=== PATIENT | male | born 1950 | race Caucasian/White ===

== ENCOUNTER 2019-04-02 22:08 | Inpatient (IN) | payer MEDICARE ==
[~2019-04-02] VITALS: Ht 180.3 cm; Wt 154.2 kg
--- NOTE | 2019-04-02 22:10 | ER Report ---
History and Physical Time Seen By MD: 22:10 HPI/ROS CHIEF COMPLAINT: Shortness of breath, chest pain HISTORY OF PRESENT ILLNESS: Patient is a 69-year-old male who is from [facility]. Patient reports that over the past several days he has developed progressive, worsening shortness breath, chest pains and a history of prior CVA. Patient reports that he is supposed to be on anticoagulation however he had taken himself off of blood thinning agents approximately 2 years ago. Patient describes pain radiating into his right back from his chest, shortness breath. Patient was also noted to be hypoxic at 85% on room air at rest with no prior history of supplemental oxygen requirement. REVIEW OF SYSTEMS: Constitutional: No fever, no chills. Eyes: No discharge. ENT: No sore throat. Cardiovascular: + chest pain, + palpitations. Respiratory: No cough, + shortness of breath. Gastrointestinal: No abdominal pain, no vomiting. Genitourinary: No hematuria. Musculoskeletal: No back pain. Skin: No rashes. Neurological: No headache.+ Generalized weakness Allergies: Uncoded Allergies: codiene (Allergy, Intermediate, 04/02/19) Constitutional Vital Sign - Last 24 Hours 04/02/19 04/02/19 04/02/19 04/02/19 22:13 22:15 22:20 22:20 Temp 98.4 Pulse 142 134 Resp 20 22 B/P (MAP) 162/143 Pulse Ox 85 93 O2 Delivery Room Air Nasal Cannula O2 Flow Rate 2.0 1.5 04/02/19 04/02/19 04/02/19 04/02/19 22:30 22:30 22:30 22:35 Pulse 136 116 146 Resp 22 24 24 Pulse Ox 93 O2 Delivery Nasal Cannula O2 Flow Rate 1.5 04/02/19 04/03/19 04/03/19 04/03/19 23:08 00:30 00:40 01:00 Pulse 118 105 Resp 23 39 29 B/P (MAP) 151/121 (131) 140/125 (130) Pulse Ox 91 04/03/19 04/03/19 04/03/19 01:20 01:40 01:52 Pulse 134 Resp 22 B/P (MAP) 138/112 (121) 135/98 (110) Pulse Ox 93 Physical Exam General Appearance: The patient is alert, has no immediate need for airway protection and no signs of toxicity. Uncomfortable appearing, visibly short of breath Eyes: Pupils equal and round no pallor or injection. ENT, Mouth: Mucous membranes are moist. Respiratory: There are no retractions, lungs are clear to auscultation. Cardiovascular: Rapid, irregularly irregular Gastrointestinal: Abdomen is soft and non tender, no masses, bowel sounds normal. Neurological: No focal neurological findings, cranial nerves intact Skin: Warm and dry, no rashes. Musculoskeletal: Neck is supple non tender. Extremities are nontender, nonswollen and have full range of motion. DIFFERENTIAL DIAGNOSIS: After history and physical exam differential diagnosis was considered for shortness of breath including but not limited to pulmonary infectious process, COPD, asthma, pulmonary embolus and congestive heart failure. Alvin wong RVR Medical Decision Making Data Points Result Diagram: 04/02/19223704/02/192237 Laboratory Hematology Test 04/02/19 22:38 04/03/19 01:27 Red Blood Count 4.66 M/uL (4.00-5.60) Mean Corpuscular Volume 91.3 fL (80.0-96.0) Mean Corpuscular Hemoglobin 30.0 pg (26.0-33.0) Mean Corpuscular Hemoglobin Concent 32.9 g/dL (32.0-36.0) Red Cell Distribution Width 13.2 % (11.5-14.5) Mean Platelet Volume 9.6 fL (7.2-11.1) Neutrophils (%) (Auto) 70.1 % (39.4-72.5) Lymphocytes (%) (Auto) 16.8 % (17.6-49.6) Monocytes (%) (Auto) 10.2 % (4.1-12.4) Eosinophils (%) (Auto) 1.9 % (0.4-6.7) Basophils (%) (Auto) 1.0 % (0.3-1.4) Nucleated RBC Relative Count (auto) 0.0 /100WBC Neutrophils # (Auto) 9.0 K/uL (2.0-7.4) Lymphocytes # (Auto) 2.2 K/uL (1.3-3.6) Monocytes # (Auto) 1.3 K/uL (0.3-1.0) Eosinophils # (Auto) 0.2 K/uL (0.0-0.5) Basophils # (Auto) 0.1 K/uL (0.0-0.1) Nucleated RBC Absolute Count (auto) 0.01 K/uL Prothrombin Time 13.3 seconds (12.0-14.4) Prothromb Time International Ratio 1.01 Activated Partial Thromboplast Time 30 seconds (23-35) D-Dimer Quantitative (PE/DVT) 1.28 ug/ml (0-0.50) Blood Gas Patient Temperature 98.4 DEGREES Venous Blood pH 7.39 (7.31-7.41) Venous Blood Partial Pressure CO2 34 mmHg Venous Blood Partial Pressure O2 78 mmHg Venous Blood HCO3 21 mmol/L Venous Blood Oxygen Saturation 96 % Venous Blood Base Excess -4 mmol/L Oxygen Liters/Minute 2 Sodium Level 138 mmol/L (137-145) Potassium Level 3.9 mmol/L (3.5-5.0) Chloride Level 105 mmol/L (98-107) Carbon Dioxide Level 23 mmol/L (22-30) Blood Urea Nitrogen 22 mg/dl (9-21) Creatinine 0.80 mg/dl (0.66-1.25) Glomerular Filtration Rate Calc > 60.0 Random Glucose 118 mg/dl (75-110) Lactate 1.2 mmol/L (0.7-2.1) Calcium Level 9.0 mg/dl (8.4-10.2) Total Bilirubin 0.6 mg/dl (0.2-1.3) Aspartate Amino Transf (AST/SGOT) 36 U/L (0-35) Alanine Aminotransferase (ALT/SGPT) 69 U/L (0-56) Alkaline Phosphatase 76 U/L (0-126) B-Type Natriuretic Peptide 231 pg/ml (0-100) Total Protein 6.3 g/dl (6.3-8.2) Albumin 3.7 g/dl (3.5-5.0) Lipase 52 U/L (23-300) Troponin I 0.053 ng/ml Chemistry Test 04/02/19 22:38 04/03/19 01:27 White Blood Count 12.8 k/uL (4.5-11.0) Red Blood Count 4.66 M/uL (4.00-5.60) Hemoglobin 14.0 g/dL (14.0-18.0) Hematocrit 42.5 % (42.0-52.0) Mean Corpuscular Volume 91.3 fL (80.0-96.0) Mean Corpuscular Hemoglobin 30.0 pg (26.0-33.0) Mean Corpuscular Hemoglobin Concent 32.9 g/dL (32.0-36.0) Red Cell Distribution Width 13.2 % (11.5-14.5) Platelet Count 210 K/uL (150-450) Mean Platelet Volume 9.6 fL (7.2-11.1) Neutrophils (%) (Auto) 70.1 % (39.4-72.5) Lymphocytes (%) (Auto) 16.8 % (17.6-49.6) Monocytes (%) (Auto) 10.2 % (4.1-12.4) Eosinophils (%) (Auto) 1.9 % (0.4-6.7) Basophils (%) (Auto) 1.0 % (0.3-1.4) Nucleated RBC Relative Count (auto) 0.0 /100WBC Neutrophils # (Auto) 9.0 K/uL (2.0-7.4) Lymphocytes # (Auto) 2.2 K/uL (1.3-3.6) Monocytes # (Auto) 1.3 K/uL (0.3-1.0) Eosinophils # (Auto) 0.2 K/uL (0.0-0.5) Basophils # (Auto) 0.1 K/uL (0.0-0.1) Nucleated RBC Absolute Count (auto) 0.01 K/uL Prothrombin Time 13.3 seconds (12.0-14.4) Prothromb Time International Ratio 1.01 Activated Partial Thromboplast Time 30 seconds (23-35) D-Dimer Quantitative (PE/DVT) 1.28 ug/ml (0-0.50) Blood Gas Patient Temperature 98.4 DEGREES Venous Blood pH 7.39 (7.31-7.41) Venous Blood Partial Pressure CO2 34 mmHg Venous Blood Partial Pressure O2 78 mmHg Venous Blood HCO3 21 mmol/L Venous Blood Oxygen Saturation 96 % Venous Blood Base Excess -4 mmol/L Oxygen Liters/Minute 2 Glomerular Filtration Rate Calc > 60.0 Lactate 1.2 mmol/L (0.7-2.1) Calcium Level 9.0 mg/dl (8.4-10.2) Total Bilirubin 0.6 mg/dl (0.2-1.3) Aspartate Amino Transf (AST/SGOT) 36 U/L (0-35) Alanine Aminotransferase (ALT/SGPT) 69 U/L (0-56) Alkaline Phosphatase 76 U/L (0-126) B-Type Natriuretic Peptide 231 pg/ml (0-100) Total Protein 6.3 g/dl (6.3-8.2) Albumin 3.7 g/dl (3.5-5.0) Lipase 52 U/L (23-300) Troponin I 0.053 ng/ml Coagulation Test 04/02/19 22:38 Prothrombin Time 13.3 seconds Prothromb Time International Ratio 1.01 Activated Partial Thromboplast Time 30 seconds D-Dimer Quantitative (PE/DVT) 1.28 ug/ml EKG/Imaging EKG Interpretation PATIENT NAME: ISMAEL SIMPSON : [id number] MR: [id number] V: [id number] EXAM DATE: ORDERING PHYSICIAN: VALENTINA CH TECHNOLOGIST: BJORN Test Reason : SOB Blood Pressure : / mmHG Vent. Rate : 148 BPM Atrial Rate : 153 BPM P-R Int : 000 ms QRS Dur : 154 ms QT Int : 308 ms P-R-T Axes : 000 170 001 degrees QTc Int : 483 ms Sinus tachycardia with premature supraventricular complexes Right bundle branch block Abnormal ECG No previous ECGs available Confirmed by Lex Askew ([id number]) on 04/03/2019 1:15:09 AM Referred By: Confirmed By:Lex [facility] PATIENT NAME: Ismael Simpson : 1950 MR: [id number] V: [id number] EXAM DATE: [id number] ORDERING PHYSICIAN: VALENTINA CH TECHNOLOGIST: Location: [facility] [place] Patient: Ismael Simpson : 1950 Visit/Account:[id number] Date of Sevice: 04/02/2019 CT CTA CHEST W & W/O CON HISTORY: Respiratory distress ADDITIONAL HISTORY: None. TECHNIQUE: CTA chest with contrast. 3D coronal slab MIPs and 2D reconstructions in the coronal and sagittal planes were also created. One of the following dose optimization techniques was utilized in the performance of this exam: automated exposure control; adjustment of the mA and/or kv according to patient size; or use of iterative reconstruction technique. Specific details can be referenced in the facility's radiology CT exam operational policy. CONTRAST: 75 cc of Isovue-370 COMPARISON: None. FINDINGS: Vessels: No acute filling defect within the main, lobar or segmental pulmonary arteries. Mild calcification of the coronary arteries. Lower neck: Negative. Heart and pericardium: Negative Mediastinum/hilum/lymph nodes: Calcified right hilar lymph nodes. Lungs/pleura: Calcified granuloma within the right lung. Mild areas of air trapping. No consolidation, pneumothorax or pleural effusion. Visualized upper abdomen: Please see separate report Bones/soft tissues: Negative. Other findings: None significant IMPRESSION: 1. Negative examination for acute pulmonary embolism. 2. Old granulomatous disease. 3. Mild areas of air trapping which can be seen with reactive airway disease but is nonspecific. PATIENT NAME: Ismael Simpson : 1950 MR: [id number] V: [id number] EXAM DATE: ORDERING PHYSICIAN: VALENTINA CH TECHNOLOGIST: Location: [facility] [place] Patient: Ismael Simpson : 1950 Visit/Account:[id number] Date of Sevice: 04/02/2019 CT ABDOMEN PELVIS W/ CON HISTORY: Chest and abdominal pain TECHNIQUE: Axial images were obtained through the abdomen and pelvis with intravenous contrast . One of the following dose optimization techniques was utilized in the performance of this exam: automated exposure control; adjustment of the mA and/or kv according to patient size; or use of iterative reconstruction technique. Specific details can be referenced in the facility's radiology CT exam operational policy. CONTRAST: 75 cc of Isovue-370 COMPARISON: None. FINDINGS: Visualized lung bases: Negative. Hepatobiliary: Mild edema surrounding the gallbladder, verónica hepatis and pancreatic head. Spleen: Gallstones. Adrenals: Negative. Pancreas: Mild edema surrounding the pancreatic head extending along the right retroperitoneum. Kidneys/ureters/bladder: Horseshoe kidney. No hydronephrosis. Mild contrast excretion within the renal collecting systems. Bowel/peritoneum/mesentery: No bowel obstruction or free air. Vessels: Negative. Lymph nodes: Negative. Pelvic genitourinary: Negative. Bones/body wall: Negative. Other findings: None significant IMPRESSION: 1. Mild edema adjacent to the pancreatic head, verónica hepatis and gallbladder fo ssa. Recommend correlation for pancreatitis and abdominal ultrasound to exclude gallbladder or biliary pathology. PATIENT NAME: Ismael Simpson : 1950 MR: [id number] V: [id number] EXAM DATE: ORDERING PHYSICIAN: VALENTINA CH TECHNOLOGIST: Location: [facility] [place] Patient: Ismael Simpson : 1950 Visit/Account:[id number] Date of Sevice: 04/02/2019 Limited ultrasound of the abdomen: Indication: Upper abdominal pain. Abnormal CT scan. Technique: Routine imaging, with Doppler. Comparison: CT scan from 04/02/2019. Gallbladder: Normal in size and shape. No echogenic calculi or sludge are identified in the lumen. There appears to be a small amount of fluid around the gallbladder wall. Biliary tree: Normal in caliber. The CBD measures 6 mm. Liver: Enlarged. The right lobe measures 20.2 cm. There is diffuse increased echogenicity, compatible with fatty infiltration. No focal mass lesions are identified. The portal vein is patent with antegrade flow. Pancreas: Not adequately visualized. Spleen: Not evaluated. Kidneys: The right kidney measures 14.2 x 6.2 x 4.3 cm. The right kidney is attached to the left kidney at the lower pole, horseshoe kidney. There are no signs of renal mass, calcification, or dilatation of the collecting structures. Aorta and IVC: Not adequately visualized. Ascites: None seen. IMPRESSION: The gallbladder is normal in size. No calculi or sludge are identified in the lumen. There appears to be a small amount of fluid around the gallbladder wall, of uncertain clinical significance. The liver is enlarged, with diffuse fatty infiltration. Report Dictated By: Akshat Redding MD at 04/03/2019 1:42 AM ED Course/Re-evaluation ED Course Patient is a 69-year-old male here with complaints of progressive dyspnea, chest pressure and pain for the past 4 days. EKG showed rapid ventricular rate atrial fibrillation. Patient reportedly had a history of CVA, decided to stop taking warfarin approximately 2 years ago and is currently not taking any of his prescribed medications. Patient does seem to have a history of atrial fibrillat ion. Patient was given diltiazem boluses 2, started on a diltiazem infusion due to persistent symptoms and refractory A. fib RVR. Patient was initially given a DuoNeb without relief of symptoms. Initial labs were remarkable for elevated d- dimer, troponin in the indeterminate range which was repeated 3 hours later and was not increased but slightly decreased. Increase in troponin was likely second denny to atrial fibrillation with RVR. CTA of the chest, CT of the abdomen and pelvis showed no signs of pulmonary emboli, there was mild inflammation in the periportal area prompting ultrasound imaging which showed no acute findings of cholecystitis. I discussed these findings with the patient and with Dr. dixon who is the hospitalist on-call who admitted the patient for further treatment and care. Patient was hemodynamically stable at time of admission. Decision to Disposition Date: Apr 03, 2019 Decision to Disposition Time: 02:07 Depart Departure Latest Vital Signs Vital Signs Date Time Temp Pulse Resp B/P (MAP) Pulse Ox O2 Delivery O2 Flow Rate FiO2 04/03/19 01:52 134 22 93 04/03/19 01:40 135/98 (110) 04/02/19 22:30 Nasal Cannula 1.5 04/02/19 22:13 98.4 Impression: Primary Impression: Atrial fibrillation with RVR Condition: Condition Unchanged Disposition: Admitted from ER VALENTINA CH DO Apr 02, 2019 22:10
[2019-04-02] MEDS ORDERED: NS(*) 0.9% 1000 ML BAG 1,000 ML IV ONE (22:17)
[2019-04-02] MEDS ORDERED: methylPREDNIS SUCC 125 MG/2ML IVP ONE (22:20)
[2019-04-02] MEDS: ALBUTEROL/IPRATROPIUM 3 ML NEB NEB SCH (22:26)
[2019-04-02] MEDS ORDERED: IOPAMIDOL 76% 100 ML INFUS BTL 100 ML ONE (22:33)
[2019-04-02] MEDS ORDERED: NS(*) 0.9% 50 ML BAG 50 ML ONE (22:33)
[2019-04-02] MEDS ORDERED: DILTIAZEM 5 MG/ML 5ML IVPUSH IVP ONE (22:40)
[2019-04-02 22:54] LABS: PLATELET COUNT, AUTOMATED 210 K/uL (150-450)
[2019-04-02 23:03] LABS: INR 1.01
--- NOTE | 2019-04-02 23:08 | EKG ---
FACILITY: [facility] - [place], [place] PATIENT NAME: ISMAEL SIMPSON : [id number] MR: [id number] V: [id number] EXAM DATE: ORDERING PHYSICIAN: VALENTINA CH TECHNOLOGIST: BJORN Test Reason : SOB Blood Pressure : / mmHG Vent. Rate : 148 BPM Atrial Rate : 153 BPM P-R Int : 000 ms QRS Dur : 154 ms QT Int : 308 ms P-R-T Axes : 000 170 001 degrees QTc Int : 483 ms Sinus tachycardia with premature supraventricular complexes Right bundle branch block Abnormal ECG No previous ECGs available Confirmed by Lex Askew ([id number]) on 04/03/2019 1:15:09 AM Referred By: Confirmed By:Lex Dixon
--- NOTE | 2019-04-02 23:38 | RADIOLOGY IMAGING REPORT ---
FACILITY: [facility] - [place] PATIENT NAME: Isrrael Koo : 1950 MR: [id number] V: [id number] EXAM DATE: ORDERING PHYSICIAN: VALENTINA CH TECHNOLOGIST: Location: [facility] - [place] Patient: Isrrael Koo : 1950 Visit/Account:[id number] Date of Sevice: 04/02/2019 CT CTA CHEST W & W/O CON HISTORY: Respiratory distress ADDITIONAL HISTORY: None. TECHNIQUE: CTA chest with contrast. 3D coronal slab MIPs and 2D reconstructions in the coronal and sagittal planes were also created. One of the following dose optimization techniques was utilized in the performance of this exam: automated exposure control; adjustment of the mA and/or kv according to patient size; or use of iterative reconstruction technique. Specific details can be referenced in [facility]'s radiology CT exam operational policy. CONTRAST: 75 cc of Isovue-370 COMPARISON: None. FINDINGS: Vessels: No acute filling defect within the main, lobar or segmental pulmonary arteries. Mild calcif ication of the coronary arteries. Lower neck: Negative. Heart and pericardium: Negative Mediastinum/hilum/lymph nodes: Calcified right hilar lymph nodes. Lungs/pleura: Calcified granuloma within the right lung. Mild areas of air trapping. No consolidatio n, pneumothorax or pleural effusion. Visualized upper abdomen: Please see separate report Bones/soft tissues: Negative. Other findings: None significant IMPRESSION: 1. Negative examination for acute pulmonary embolism. 2. Old granulomatous disease. 3. Mild areas of air trapping which can be seen with reactive airway disease but is nonspecific. Report Dictated By: Jamaal Barcenas MD at 04/02/2019 11:29 PM Report E-Signed By: Jamaal Barcenas MD at 04/02/2019 11:34 PM WSN:[id number]
--- NOTE | 2019-04-02 23:43 | RADIOLOGY IMAGING REPORT ---
FACILITY: [facility] - [place] PATIENT NAME: Isrrael Koo : 1950 MR: [id number] V: [id number] EXAM DATE: ORDERING PHYSICIAN: VALENTINA CH TECHNOLOGIST: Location: [facility] Patient: Isrrael Koo : 1950 Visit/Account:[id number] Date of Sevice: 04/02/2019 CT ABDOMEN PELVIS W/ CON HISTORY: Chest and abdominal pain TECHNIQUE: Axial images were obtained through the abdomen and pelvis with intravenous contrast . One of the following dose optimization techniques was utilized in the performance of this exam: automate d exposure control; adjustment of the mA and/or kv according to patient size; or use of iterative rec onstruction technique. Specific details can be referenced in the facility's radiology CT exam operati onal policy. CONTRAST: 75 cc of Isovue-370 COMPARISON: None. FINDINGS: Visualized lung bases: Negative. Hepatobiliary: Mild edema surrounding the gallbladder, verónica hepatis and pancreatic head. Spleen: Gallstones. Adrenals: Negative. Pancreas: Mild edema surrounding the pancreatic head extending along the right retroperitoneum. Kidneys/ureters/bladder: Horseshoe kidney. No hydronephrosis. Mild contrast excretion within the dieter al collecting systems. Bowel/peritoneum/mesentery: No bowel obstruction or free air. Vessels: Negative. Lymph nodes: Negative. Pelvic genitourinary: Negative. Bones/body wall: Negative. Other findings: None significant IMPRESSION: 1. Mild edema adjacent to the pancreatic head, verónica hepatis and gallbladder fossa. Recommend correla tion for pancreatitis and abdominal ultrasound to exclude gallbladder or biliary pathology. Report Dictated By: Jamaal Barcenas MD at 04/02/2019 11:34 PM Report E-Signed By: Jamaal Barcenas MD at 04/02/2019 11:40 PM WSN:[id number]
[2019-04-03] VITALS (49 sets, daily range): BP systolic 108–171; BP diastolic 61–156
[2019-04-03] MEDS ORDERED: DILTIAZEM 5 MG/ML 5ML IVPUSH IVP ONE (00:10)
[2019-04-03] MEDS ORDERED: ONDANSETRON 4 MG/2 ML VIAL IVP ONE (00:40)
[2019-04-03] MEDS ORDERED: DILTIAZEM HCL 125 MG/25 ML SDV 125 MG in NS(*) 0.9% 100 ML BAG 100 ML IV ONE (01:55)
--- NOTE | 2019-04-03 01:57 | RADIOLOGY IMAGING REPORT ---
FACILITY: [facility] - [place] PATIENT NAME: Isrrael Koo : 1950 MR: [id number] V: [id number] EXAM DATE: ORDERING PHYSICIAN: VALENTINA CH TECHNOLOGIST: Location: [facility] [place] Patient: Isrrael Koo : 1950 Visit/Account:[id number] Date of Sevice: 04/02/2019 Limited ultrasound of the abdomen: Indication: Upper abdominal pain. Abnormal CT scan. Technique: Routine imaging, with Doppler. Comparison: CT scan from 04/02/2019. Gallbladder: Normal in size and shape. No echogenic calculi or sludge are identified in the lumen. Th ere appears to be a small amount of fluid around the gallbladder wall. Biliary tree: Normal in caliber. The CBD measures 6 mm. Liver: Enlarged. The right lobe measures 20.2 cm. There is diffuse increased echogenicity, compatible with fatty infiltration. No focal mass lesions are identified. The portal vein is patent with antegr linn flow. Pancreas: Not adequately visualized. Spleen: Not evaluated. Kidneys: The right kidney measures 14.2 x 6.2 x 4.3 cm. The right kidney is attached to the left kidn ey at the lower pole, horseshoe kidney. There are no signs of renal mass, calcification, or dilatatio n of the collecting structures. Aorta and IVC: Not adequately visualized. Ascites: None seen. IMPRESSION: The gallbladder is normal in size. No calculi or sludge are identified in the lumen. Ther e appears to be a small amount of fluid around the gallbladder wall, of uncertain clinical significan ce. The liver is enlarged, with diffuse fatty infiltration. Report Dictated By: Akshat Redding MD at 04/03/2019 1:42 AM Report E-Signed By: Akshat Redding MD at 04/03/2019 1:52 AM WSN:[id number]
[2019-04-03] MEDS ORDERED: DILTIAZEM HCL* 100 MG ADDVIAL 100 MG in NS(*) 0.9% 100 ML ADDVANT BAG 100 ML IV SCH (03:12)
[2019-04-03] MEDS ORDERED: FLUSH 10 ML SYR IVP PRN (03:15)
[2019-04-03] MEDS: DILTIAZEM HCL* 100 MG ADDVIAL 100 MG in NS(*) 0.9% 100 ML ADDVANT BAG 100 ML IV SCH ×2 (03:21→03:37)
--- NOTE | 2019-04-03 03:32 | History & Physical ---
History of Present Illness Chief Complaint dyspnea History of Present Illness 69M presented with 2-3 days feeling short of breath and tired. PMHx significant for atrial fibrillation, TIA. Reports stopped previous anticoagulation on his own several years ago, currently traveling back home to [place]. Denies any recent illness, chest pain. In ER found to be in afib with RVR and hypoxic. Work up for PE negative, he was given diltiazem bolus with some effect. Admitted to ICU for further management. History Other Past Medical Hx see HPI Allergies: Uncoded Allergies: codiene (Allergy, Intermediate, 04/02/19) Hx Smoking: No Hx Alcohol Use: No Hx Substance Use Disorder: No Review of Systems All Systems Reviewed/Normal: Yes, Except as Noted Cardiovascular: No Chest Pain Respiratory: Shortness of Breath Exam Vital Signs Vital Signs Date Time Temp Pulse Resp B/P (MAP) Pulse Ox O2 Delivery O2 Flow Rate FiO2 04/03/19 01:52 134 22 93 04/03/19 01:40 135/98 (110) 04/02/19 22:30 Nasal Cannula 1.5 04/02/19 22:13 98.4 General Appearance: Alert, Awake, No Acute Distress, Afebrile Neuro: No Gross deficits ENT: Normal Cardiovascular: Other (irregularly irregular, tachycardic) Respiratory: No Respiratory Distress GI: Abd Soft and Non-Tender Musculoskeletal: No Weakness/Pain Extremities: Soft and Non Tender, Warm, Pulses, Perfused Medical Decision Making Data Points Result Diagram: 04/02/19223704/02/192237 EKG / Imaging EKG Interpretation afib with RVR Monitor Interpretation: Atrial Fibrillation (with RVR) Assessment and Plan Problems: (1) Atrial fibrillation with RVR Status: Acute Assessment & Plan: Admit to ICU, diltiazem gtt, begin Xarelto for stroke prophylaxis. (2) Hypoxia Assessment & Plan: Supplemental O2 PRN, hope that rate control may improve O2 needs. RA at baseline [place]. Venous Thromboembolism Antithrombotics Is Pt On Any Antithrombotics?: Yes Exam Sepsis Risk: No Definite Risk STEPHENS MAITE LUKE DO Apr 03, 2019 03:32
--- NOTE | 2019-04-03 08:11 | Hospitalist Progress Note ---
Subjective Progress Notes Subjective HR has been improved on diltiazem IV. Significant elevation when up with low level activity. Physical Exam Vital Signs Date Time Temp Pulse Resp B/P (MAP) Pulse Ox O2 Delivery O2 Flow Rate FiO2 04/03/19 07:24 91 Nasal Cannula 3.0 04/03/19 07:00 88 13 133/81 (98) 04/03/19 03:00 97.7 Intake and Output 04/03/19 06:59 Intake Total 233.3 ml Output Total 250 ml Balance -16.7 ml Intake Oral 100 ml IV Total 133.3 ml Output Urine Total 250 ml # Voids 0 General Appearance: Alert, Awake Cardiovascular: Other (Distant tones/irregular/no obvious murmur) Respiratory: Clear to Auscultation GI: Soft and Non-Tender (obese) Extremities: Edema (trace both feet/ankles) Result Diagram: 04/02/19223704/02/192237 Item Value Date Time Troponin I 0.064 ng/ml 04/02/192237 Troponin I 0.053 ng/ml 04/03/19 0127 B-Type Natriuretic Peptide 231 pg/ml H 04/02/192237 Monitor Interpretation: Atrial Fibrillation Assessment and Plan Problems: (1) Atrial fibrillation with RVR Status: Acute Assessment & Plan: HR improved on the IV diltiazem. Will see if can transition to oral. We have started Xarelto for stroke prophylaxis. Will check echocardiogram and TSH. (2) Hypoxia Assessment & Plan: He does not use O2 at baseline, [place] I suspect he may be a hypoventilation syndrome based on his body habitus. He will most likely need oxygen at discharge and will need close follow up with primary care physician. Exam Sepsis Risk: Sepsis Risk JUSTYNA EUBANKS MD Apr 03, 2019 08:11
[2019-04-03] MEDS: RIVAROXABAN 10 MG TAB PO SCH (09:00)
[2019-04-03] MEDS ORDERED: ACETAMINOPHEN 325 MG TAB PO PRN (09:20)
[2019-04-03] MEDS ORDERED: DILTIAZEM CD 180 MG CAPCR PO ONE (12:30)
[2019-04-04] VITALS (8 sets, daily range): BP systolic 105–156; BP diastolic 67–145; Ht 180.3 cm; Wt 154.2 kg
[2019-04-04] MEDS ORDERED: DILT240C4 PO (08:13)
[2019-04-04] MEDS ORDERED: RIVA20TA PO (08:13)
--- NOTE | 2019-04-04 08:16 | Hospitalist Depart ---
Discharge Summary Reason for Hosp/Final Diag: (1) Atrial fibrillation with RVR Status: Acute Hospital Course & Plan: He did present with atrial fibrillation and a rapid ventricular rate. He was initially placed on IV diltiazem, but has now transitioned to oral treatment. He will discharge on oral diltiazem and Xarelt o. An echocardiogram showed his ejection fraction to be mildly reduced at 50- 55%. (2) Hypoxia Hospital Course & Plan: He will discharge on home oxygen, but this can be reevaluated once he returns to lower elevation. Departure Weight (Pounds): 340 Result Diagram: 04/02/19223704/02/192237 Condition: Improved Discharge: Home, Self Care Discharge Instructions Home Meds Active Scripts Rivaroxaban 20 Mg (XARELTO 20 MG) 20 Mg Tablet, 20 MG PO QDAY, #30 TAB Prov:TAMIKO LEROY DO 04/04/19 Diltiazem Hcl (DILTIAZEM 24HR CD) 240 Mg Cap.er.24h, 240 MG PO QDAY, #30 CAP.SR.24H Prov:TAMIKO LEROY DO 04/04/19 Diet: Regular Activity: As Tolerated Venous Thromboembolism Antithrombotics Is Pt On Any Antithrombotics?: Yes TAMIKO LEROY DO Apr 04, 2019 08:16
[2019-04-04] MEDS ORDERED: DILTIAZEM CD 180 MG CAPCR PO SCH (09:00)
[2019-04-04] MEDS: RIVAROXABAN 10 MG TAB PO SCH (09:42)
== END 2019-04-04 11:40 | disposition home or self-care (01) | DRG 309 ==
LOC: ER 22:25 → MERGE 04-03 02:05 → ICU 04-03 02:05
PROVIDERS: ADMIT Internal Medicine; ATTEND Internal Medicine
DX: I48.2 Chronic atrial fibrillation (principal); E66.2 Morbid (severe) obesity with alveolar hypoventilation; Z68.41 Body mass index [BMI] 40.0-44.9, adult; R09.02 Hypoxemia; Z88.5 Allergy status to narcotic agent; Z86.73 Personal history of transient ischemic attack (TIA), and cerebral infarction without residual deficits
CPT/HCPCS: 36415; 71275; 74177; 76705; 81001; 82040; 82247; 82310; 82374; 82435; 82565; 82803; 82947; 83605; 83690; 83880; 84075; 84132; 84155; 84295; 84443; 84450; 84460; 84484; 84520; 85025; 85379; 85610; 85730; 87040; 93005; 94640; 96361; 96365; 96375; 96376; 99285; C8929; J2930; J3490; J7030; J7050; Q9957; Q9967